=== PATIENT | male | born 1985 | race Caucasian/White ===

== ENCOUNTER 2020-10-27 02:27 | Emergency (ER) | payer OTHER ==
[2020-10-27] MEDS ORDERED: Diphtheria,Pertussis(Acell),Tetanus Vaccine 0.5 ML Syringe IM ONE (02:39)
--- NOTE | 2020-10-27 02:39 | EDM.PDOC ---
ED HPI GENERAL MEDICAL PROBLEM - General Chief Complaint: Laceration Stated Complaint: LACERATION Time Seen by Provider: 10/27/20 02:32 Source of Information: Reports: Patient History Limitations: Reports: No Limitations - History of Present Illness INITIAL COMMENTS - FREE TEXT/NARRATIVE: Pt cut left thumb on piece of equipment at work Last tetanus 8 yrs ago Onset: Today, Sudden Duration: Hour(s): Location: Reports: Upper Extremity, Left Quality: Reports: Ache, Throbbing Severity: Moderate Improves with: Reports: Immobilization Worsens with: Reports: Movement Context: Reports: Trauma - Related Data Allergies Allergy/AdvReac Type Severity Reaction Status Date / Time No Known Drug Allergies Allergy Other Verified 10/27/20 02:27 Home Meds: Home Meds OXcarbazepine [Trileptal] 600 mg PO DAILY 10/27/20 [History] levETIRAcetam [Levetiracetam] 750 mg PO BID 10/27/20 [History] ED ROS GENERAL - Review of Systems Review Of Systems: See Below Skin: Reports: Other (Laceration left thumb) ED EXAM, SKIN/RASH Exam: See Below Extremities: Other (Neurovascular and tendon exam intact) Location, Skin: Other (Left thumb with 0.5 cm square flap type laceration to medial side of thumb Flap faintly dusky Wound does not approximate if flap not present) Course - Re-Assessments/Exams Free Text/Narrative Re-Assessment/Exam: 10/27/20 02:37 Wound cleaned and dressing placed per nursing Tdap given in ER Departure - Departure Time of Disposition: 02:45 Disposition: Home, Self-Care 01 Clinical Impression: Laceration of left thumb Qualifiers: Encounter type: initial encounter Damage to nail status: without damage Foreign body presence: without foreign body Qualified Code(s): S61.012A - Laceration without foreign body of left thumb without damage to nail, initial encounter - Discharge Information *PRESCRIPTION DRUG MONITORING PROGRAM REVIEWED*: Not Applicable *COPY OF PRESCRIPTION DRUG MONITORING REPORT IN PATIENT MAGI: Not Applicable Instructions: Laceration Care, Adult Additional Instructions: Keep wound clean Follow up in clinic
== END 2020-10-27 03:00 | disposition home or self-care (01) ==
LOC: LL.ED 02:27
DX: S61.012A Laceration without foreign body of left thumb without damage to nail, initial encounter (principal); Z23 Encounter for immunization; Z79.899 Other long term (current) drug therapy; V85.9XXA Unspecified occupant of special construction vehicle injured in nontraffic accident, initial encounter; Y99.0 Civilian activity done for income or pay
CPT/HCPCS: 90471; 90715; 99282

== ENCOUNTER 2021-12-28 17:22 | Emergency (ER) | payer OTHER ==
[2021-12-28] MEDS ORDERED: Mupirocin Oint 22 GM Tube TOP ONE (18:02)
== END 2021-12-28 18:23 | disposition home or self-care (01) ==
LOC: LL.ED 17:22
DX: S61.214A Laceration without foreign body of right ring finger without damage to nail, initial encounter (principal); W26.8XXA Contact with other sharp object(s), not elsewhere classified, initial encounter; Y99.0 Civilian activity done for income or pay
CPT/HCPCS: 12001; 73140; 99283; A9270

== ENCOUNTER 2022-04-16 20:13 | Emergency (ER) | payer BC ==
[2022-04-16] MEDS ORDERED: methylPREDNISolone Sodium Succinate 125 MG/2 ML SDV IM ONE (20:39)
== END 2022-04-16 21:35 | disposition home or self-care (01) ==
LOC: LL.ED 20:13
DX: M54.50 Low back pain, unspecified (principal)
CPT/HCPCS: 96372; 99283; J2930

== ENCOUNTER 2023-03-18 07:36 | Emergency (ER) | payer BC, OTHER ==
[2023-03-18] MEDS ORDERED: Sodium Chloride 0.9% 10 ML Syringe FLUSH PRN (08:05)
[2023-03-18] MEDS ORDERED: Aspirin 81 MG Tab.Chew PO ONE (08:06)
[2023-03-18 08:18] LABS: BASOPHILS ABSOLUTE AUTO 0.04 K/uL (0.00-0.20); BASOPHILS PERCENT AUTO 0.5 % (0.0-2.0); EOSINOPHILS ABSOLUTE AUTO 0.18 K/uL (0.00-0.50); EOSINOPHILS PERCENT AUTO 2.4 % (0.0-5.0); HEMATOCRIT 44.4 % (39.0-49.0); HEMOGLOBIN 15.3 g/dL (13.1-16.8); LYMPHOCYTES PERCENT AUTO 35.4 % (10.0-50.0); MEAN CORPUSCULAR HEMOGLOBIN 30.5 pg (28.2-33.3); MEAN CORPUSCULAR HGB CONC 34.5 g/dL (31.7-36.0); MEAN CORPUSCULAR VOLUME 88.6 fL (84.0-98.0); MONOCYTES ABSOLUTE AUTO 0.62 K/uL (0.00-1.00); MONOCYTES PERCENT AUTO 8.1 % (2.0-14.0); NEUTROPHILS ABSOLUTE AUTO 4.09 K/uL (1.40-7.00); NEUTROPHILS PERCENT AUTO 53.6 % (45.0-80.0); PLATELET COUNT,PLT 262 K/uL (150-350); RED BLOOD CELL COUNT 5.01 M/uL (4.33-5.41); RED CELL DISTRIBUTION WIDTH 12.7 % (11.2-14.1); WHITE BLOOD CELL COUNT,WBC 7.6 K/uL (4.0-10.2)
[2023-03-18 08:39] LABS: ALANINE AMINOTRANSFERASE,ALT 57 U/L (12-78); ALBUMIN 3.7 g/dL (3.4-5.0); ALKALINE PHOSPHATASE 137 IU/L (46-116); ANION GAP 6.7 meq/L (7-15); ASPARTATE AMNIOTRANSFERASE,AST 26 U/L (15-37); BILIRUBIN TOTAL 0.3 mg/dL (0.2-1.0); BLOOD UREA NITROGEN,BUN 7 mg/dL (7-18); CALCIUM 8.7 mg/dL (8.5-10.1); CARBON DIOXIDE,CO2 29.3 mmol/L (21.0-32.0); CHLORIDE,CL 103 mmol/L (98-107); CREATININE 0.77 mg/dL (0.51-1.17); GLUCOSE RANDOM 103 mg/dL (70-99); MAGNESIUM 1.7 mg/dL (1.8-2.4); POTASSIUM,K 3.6 mmol/L (3.5-5.1); PROTEIN TOTAL,TP 7.4 g/dL (6.4-8.2); SODIUM,NA 139 mmol/L (136-145)
[2023-03-18 08:42] LABS: ESTIMATED GFR 119 mL/min (>=60)
== END 2023-03-18 11:50 | disposition home or self-care (01) ==
LOC: LL.ED 07:36
DX: R07.89 Other chest pain (principal); G47.30 Sleep apnea, unspecified; E83.42 Hypomagnesemia; I10 Essential (primary) hypertension; E66.9 Obesity, unspecified; Z68.30 Body mass index [BMI] 30.0-30.9, adult
CPT/HCPCS: 36415; 80053; 83735; 84484; 85025; 93005; 99285; A9270-GY

== ENCOUNTER 2025-09-09 04:39 | Emergency (ER) | payer OTHER ==
[2025-09-09] MEDS: Orphenadrine 100 MG Tab.ER PO ONE (05:35)
== END 2025-09-09 06:20 | disposition home or self-care (01) ==
LOC: LL.ED 04:39
DX: M54.50 Low back pain, unspecified (principal); I10 Essential (primary) hypertension; E66.9 Obesity, unspecified; Z79.899 Other long term (current) drug therapy
CPT/HCPCS: 72100; 99283; A9270-GY